=== PATIENT | female | born 2000 | race Caucasian/White ===

== ENCOUNTER 2021-09-16 19:58 | Inpatient (IN) | payer OTHER ==
[~2021-09-16] VITALS: Ht 160 cm; Wt 47.0 kg
[~2021-09-16 19:58] MED LIST: NO HOME MEDS
--- NOTE | 2021-09-16 20:30 | NUR ---
Pt brought back from main ER, she had eloped from [facility] at approximatley 2:00 pm today. The plan is to do labs and pt to be readmitted to [facility].
[2021-09-16 20:39] LABS: URINE HCG NEGATIVE (NEG)
[2021-09-16 20:41] LABS: BASOPHILS # (AUTO) 0.1 X10'3 (0-0.2); BASOPHILS % (AUTO) 0.7 % (0-1); EOSINOPHILS # (AUTO) 0.1 X10'3 (0-0.9); EOSINOPHILS % (AUTO) 0.5 % (0-6); HEMATOCRIT 39.3 % (35.0-45.0); HEMOGLOBIN 13.3 g/dl (12.0-16.0); MEAN CORPUSCULAR HEMOGLOBIN 30.2 PG (27.0-31.0); MEAN CORPUSCULAR HGB CONC 33.8 g/dL (33.0-36.5); MEAN CORPUSCULAR VOLUME 89.3 FL (78-98); MONOCYTES # (AUTO) 1.1 X10'3 (0-0.9); MONOCYTES % (AUTO) 10.9 % (2-12); NEUTROPHILS # (AUTO) 6.4 X10'3 (1.8-7.7); NEUTROPHILS % (AUTO) 66.9 % (42-75); PLATELET COUNT 237 X10'3 (140-440); WHITE BLOOD COUNT 9.6 X10'3 (4.5-11.0)
[2021-09-16 20:52] LABS: URINE AMPHETAMINE SCREEN NEGATIVE (Neg); URINE BARBITUATE SCREEN NEGATIVE (Neg); URINE BENZODIAZEPINES SCREEN NEGATIVE (Neg); URINE CANNABINOID SCREEN POSITIVE (Neg); URINE COCAINE SCREEN NEGATIVE (Neg); URINE METHADONE SCREEN NEGATIVE (Neg); URINE OPIATE SCREEN NEGATIVE (Neg); URINE PHENCYCLIDINE SCREEN NEGATIVE (Neg)
[2021-09-16 20:53] LABS: ALANINE AMINOTRANSFERASE 15 U/L (12-78); ALBUMIN 4.5 G/DL (3.4-5.0); ALBUMIN/GLOBULIN RATIO 1.7 (1.1-1.5); ALKALINE PHOSPHATASE 53 IU/L (46-116); ANION GAP 8 (8-16); ASPARTATE AMINO TRANSFERASE 22 U/L (10-37); BILIRUBIN,TOTAL 0.5 MG/DL (0.1-1.0); BLOOD UREA NITROGEN 19 MG/DL (7-18); BUN/CREATININE RATIO 19.4 (6.6-38.0); CALCIUM 8.8 MG/DL (8.5-10.1); CHLORIDE 106 MMOL/L (99-107); CREATININE 0.98 MG/DL (0.40-0.90); GLUCOSE 91 MG/DL (70-104); POTASSIUM 3.6 MMOL/L (3.5-5.1); SODIUM 141 MMOL/L (135-145); TOTAL CARBON DIOXIDE 27.1 MMOL/L (24-32); TOTAL PROTEIN 7.2 G/DL (6.4-8.2); eGFR 72 ML/MIN
[2021-09-16 20:54] LABS: ETHANOL < 0.010 GM/DL (0.0-0.010)
[2021-09-16] MEDS ORDERED: magnesium hydroxide 30ml (MOM) UD suspension PO PRN (21:35)
[2021-09-16] MEDS ORDERED: mag hydrox/Alum hydrox/simeth 30ml oral suspension PO PRN (21:35)
[2021-09-16] MEDS ORDERED: loperamide 2mg capsule PO PRN (21:35)
[2021-09-16] MEDS ORDERED: NICOTINE POLACRILEX 2 MG LOZENGE BC PRN (21:35)
[2021-09-16] MEDS ORDERED: acetaminophen 325mg tablet PO PRN ×2 (21:35)
[2021-09-16] MEDS: docusate sod 100mg capsule PO SCH (21:58)
[2021-09-16] MEDS: olanzapine 10mg tablet PO SCH (21:58)
--- NOTE | 2021-09-16 22:12 | NUR ---
NO PATIO PRIVILEGES
[2021-09-16 23:29] VITALS: BP 121/75
[2021-09-16] MEDS ORDERED: OLANZapine 2.5MG tablet PO PRN (23:45)
--- NOTE | 2021-09-16 23:45 | NUR ---
RE-ADMIT NOTE: LEGAL HOLD: 5250 for GD REASON FOR ADMIT: Client is disorganized and unable to formulate a plan for food, clothing, and usp. Client reported that she was "thinking about hurting" herself. THIS SHIFT: Client eloped during a unit patio break at approximately 14:00. Client returned to the hospital at 19:30. Both parents were present. Client was calm and quiet. Client was admitted to ED and assessed by MD. Labs and a Covid test were obtained. Client was re-admitted to [facility] at 21:45. She arrived in a wheelchair accompanied by Ron Dow. Client was cooperative during admission, showered, had a snack, and received PM meds. Client stated, "I walked to the railroad tracks and followed them to the bridge." Client denied meeting or speaking to anyone. Client denied having any type of plan. Client did not eat or drink while away from the hospital. Client stated she was walking back to the hospital and encountered a [facility] RN (who drove her back). Client was in no distress. Affect is blunted and mood is stable. Client is unaware of the potential risks of walking along train tracks or unfamiliar area's. DISCHARGE: Home.
--- NOTE | 2021-09-17 01:00 | NUR ---
LOS FOR SUICIDE RISK: Client reported to Merissa Wadsworth RN that she was planning to commit suicide during the time she eloped from [facility]. Client reported to this RN that she walked along the railroad tracks during the time she was gone. Client was aware of the location of the railroad tracks and went directly there after leaving the hospital. Client is now a LOS and suicide precautions will be implemented.
[2021-09-17 07:55] VITALS: BP 98/64
[2021-09-17] MEDS ORDERED: nicotine 21mg patch - 24 hr TD SCH (08:00)
[2021-09-17] MEDS: buPROPion 75mg tablet PO SCH ×2 (08:37→13:07)
[2021-09-17] MEDS: docusate sod 100mg capsule PO SCH ×2 (08:37→20:01)
--- NOTE | 2021-09-17 14:09 | NUR ---
Nursing Progress Note: Legal hold: 5250 Client on involuntary status for GD Report received from nurse with use of SBAR: Rossana Cazares RN Why are they here: Client is disorganized and unable to formulate a plan for food, clothing, and half-way. Client reported that she was "thinking about hurting" herself. Assessment What has happened this shift: Received pt. sleeping in bed at the beginning of the shift, she remains on line of sight r/t elopement and suicide precautions. Pt. was awoken by staff and required direction to attend breakfast in the Group Room, and afterwards she returned back to her room where she continued to isolate. 1:1 was completed at bedside, pt. presents as cooperative, fatigued, isolative, and guarded. She responds to direct questions only with a slowed and very soft response which is difficult to hear at times. Pt. admits to ongoing S/I, and when questioned by this board writer regarding any plan she did not respond. Pt. is able to contract for safety while on the unit. She denies any H/I, A/V/LIMA, and no delusional statements were made. Pt. then requested paper and a writing utensil in order to board writer her feelings down, reporting that it is easier for her to write than to talk about them. She appears depressed with a flat affect. Pt. isolates in her room throughout the day, napping intermittently, writing, or staring out the window. S/I, H/I: Pt. reports ongoing S/I, however when questioned regarding any plan she does not respond A/VH: Denies, does not appear to be internally preoccupied Sleep: Sleep hours are 6, and pt. naps intermittently during the shift ADL's: Pt. is on LOS for elopement and suicide precautions Group attendance: N/A Were meds taken: Yes Any med S/E: None Mental Status Exam Appearance: Hair and clothing somewhat disheveled r/t laying in bed Eye contact: Poor, does not look at this board writer directly when talking Behavior: Cooperative, fatigued, isolative, and guarded Speech: Very soft and slowed Mood: Guarded Affect: Flat Thought process: Poverty of thought and possible thought blocking Thought Content: Depression with S/I Cognition: A&O X4 Insight: Poor Judgment: Poor Interventions PRN's used: None Therapeutic interventions: Maintained a safe and supportive environment, ensured contract for safety, provided clear and simple instruction, provided active listening and positive encouragement, encouraged participation on the unit, and maintained LOS precautions. Restraints/seclusion/emergency medication: N/A Justification of Continued Inpatient Treatment: Per JOSE Espinal, pt. continues to require a safe and supportive environment and medication adjustments.
[2021-09-17] MEDS: LORazepam 0.5 MG tablet PO PRN (18:31)
[2021-09-17 19:31] VITALS: BP 110/71
[2021-09-17] MEDS: olanzapine 10mg tablet PO SCH (20:00)
--- NOTE | 2021-09-18 00:24 | NUR ---
NURSING PROGRESS NOTE Legal hold: 5250 Why are they here: Client is disorganized and unable to formulate a plan for food, clothing, and senior care. Client reported that she was "thinking about hurting" herself. Pt has hx of going AWOL. What Happened This Shift: Pt continues to be on a line of sight for elopement risk. She mostly isolates in her room, reading a book. She approaches RN and asks for something for anxiety pt is given PRN Ativan. She states she is feeling a lot of anxiety, but does not go into any detail. RN asks how her visit with her family went today, she responds, okay. She has a sullen look on her face and continues to have a depressed affect. RN asks how she has been sleeping and she says, I fall asleep pretty well at night. She then comes out into the hallway and sits with her sitter and a small group of peers, plays the guitar, and jenga for over an hour. Pt confided in her sitter that she had a good high school experience and didnt start having these problems until March when she did acid for the first time. She denies AH/VH/SI/HI at this time, but does not seem to want to talk about this subject. Discharge: Patient in need of crisis interruption and stabilization with medication management and monitoring in a safe and therapeutic environment until stable.
[2021-09-18] MEDS: buPROPion 75mg tablet PO SCH ×2 (07:30→12:40)
[2021-09-18 08:00] VITALS: BP 107/71
[2021-09-18] MEDS: docusate sod 100mg capsule PO SCH ×2 (08:40→20:10)
[2021-09-18 09:17] VITALS: BP 107/71
--- NOTE | 2021-09-18 09:41 | NUR ---
Pt attended group today. We talked about Self Nurturing about how to curate spaces of nurture/self-care for themselves. We then did Vision board visualizing safe/nurture places and words. Pt. quietly engaged in the group today. Her demeanor was calm, compliant and pleasant. She listened intently and appeared to enjoy the creativity of doing the Vision Page. She declined to share the page with the group but asked if she could do another one. She did share with the Track Surfacing Machine Operator that she does enjoy creative projects and has always wanted to do more with her creativity. Her mood seems depressive with a restricted affect. She doesn't reach out to peers but remains in her own space quietly. It is difficult to ascertain her thought content or thought process as she speaks minimally. Migdalia Robertson, BAGGAGE INSPECTOR
[2021-09-18] MEDS: nicotine 21mg patch - 24 hr TD SCH (16:21)
--- NOTE | 2021-09-18 16:56 | NUR ---
Nursing Progress Note: FUAD Legal hold: 5250 Client on involuntary status for GD Report received from RN with use of SBAR Why are they here: Client is disorganized and unable to formulate a plan for food, clothing, and correction. Client reported that she was "thinking about hurting" herself. Assessment What has happened this shift: Patient was sleeping at the beginning of shift, but was awake and up in bed writing in a notebook during med pass. She denies any SI/HI and V/A hallucinations. She says she plans on returning to her mothers house in [place] where she will then work for her mother and save up some money to move out on her own. She did spend some time in the community room. Spent most of her time in her room doing yoga and meditating. S/I, H/I: Denies A/VH: Denies, does not appear to be internally preoccupied Sleep: napping throughout shift ADL's: Pt. is on LOS for elopement and suicide precautions Group attendance: 1st group Were meds taken: Yes Any med S/E: None Mental Status Exam Appearance: hair and clothes intact Eye contact: good Behavior: Cooperative Speech: Very soft and slowed Mood: Guarded Affect: Flat Thought process: clear and organized Thought Content: meeting own needs Cognition: A&O X4 Insight: fair Judgment: fair Interventions PRN's used: None Therapeutic interventions: Maintained a safe and supportive environment, ensured contract for safety, provided clear and simple instruction, provided active listening and positive encouragement, encouraged participation on the unit, and maintained LOS precautions. Restraints/seclusion/emergency medication: N/A Justification of Continued Inpatient Treatment: JOSE Montero, pt. continues to require a safe and supportive environment and medication adjustments.
--- NOTE | 2021-09-18 18:52 | NUR ---
Met with patient briefly to assess her mental status. Her affect is downcast, I inquired as to whether she was still having thoughts of suicide, she denied currently, I asked when the last time she had thoughts of suicide and she stated "earlier today." She stated she feels like her emotions come in waves. She remains on LOS status.
[2021-09-18 20:00] VITALS: BP 119/75
[2021-09-18] MEDS: olanzapine 10mg tablet PO SCH (20:10)
[2021-09-18] MEDS: traZODone 50mg tablet PO PRN (22:54)
--- NOTE | 2021-09-18 23:48 | NUR ---
Nursing Progress Note: FUAD Legal hold: 5150 Client on involuntary status for GD Report received from RN with use of SBAR Why are they here: Client is disorganized and unable to formulate a plan for food, clothing, and assisted. Client reported that she was "thinking about hurting" herself. Assessment What has happened this shift: Patient was sitting up in bed reading at change of shift. She currently denies any SI/HI and V/A hallucinations, however the CN assessed her mental status and pt states the last time she thought of suicide was earlier today. She presents as depressed and slightly anxious. She participated in snacks in the community room and took all HS medications. She is observed sitting in her room reading with headphones on prior to bedtime. Pt up around 2230 requesting sleep medication, 50MG of trazadone given. Pt remains on LOS status S/I, H/I: Denies A/VH: Denies, does not appear to be internally preoccupied Sleep: ADL's: Pt. is on LOS for elopement and suicide precautions Group attendance: Were meds taken: Yes Any med S/E: None Mental Status Exam Appearance: Wearing green scrub bottoms with a personal jacket Eye contact: fair Behavior: Cooperative Speech: Very soft and slowed Mood: Guarded Affect: Flat Thought process: clear and organized Thought Content: meeting own needs Cognition: A&O X4 Insight: fair Judgment: fair Interventions PRN's used: trazadone Therapeutic interventions: Maintained a safe and supportive environment, ensured contract for safety, provided clear and simple instruction, provided active listening and positive encouragement, encouraged participation on the unit, and maintained LOS precautions. Restraints/seclusion/emergency medication: N/A Justification of Continued Inpatient Treatment: JOSE Montero, pt. continues to require a safe and supportive environment and medication adjustments.
[2021-09-19] MEDS: buPROPion 75mg tablet PO SCH ×2 (07:48→12:48)
[2021-09-19] MEDS: docusate sod 100mg capsule PO SCH ×2 (07:48→20:12)
[2021-09-19] MEDS: nicotine 21mg patch - 24 hr TD SCH (07:49)
[2021-09-19 08:00] VITALS: BP 95/67
--- NOTE | 2021-09-19 13:53 | NUR ---
Pt. attended group today. At the beginning of group we talked about Core Beliefs and they each identified one negative. We worked toward finding evidence to contradict this belief. In the second half of the group we did an Art Expressions where they what was inside of their hearts. They were to visualize in colors and shapes and then color their heart in. Then they completed a Sentence Completion about what their heart thinks and feels. Pt. quietly sat in group listening to this Cattle Manager and her peers. Her thought content and thought process were WNL. She engaged well in the group but did not wish to share her thoughts with the group. She did share her heart drawing and attempted to explain it a bit. Her heart was very colorful. She described her heart as divided. She had an arrow on one side and a flower on the other, she couldn't really explain what these represented. Migdalia Robertson, MANAGER PAPER
--- NOTE | 2021-09-19 15:59 | NUR ---
Nursing Progress Note: Ingrid Legal hold: 5150 Client on involuntary status for GD Report received from RYDER Craven with use of SBAR Why are they here: Client is disorganized and unable to formulate a plan for food, clothing, and senior living. Client reported that she was "thinking about hurting" herself. Assessment What has happened this shift: Patient received sleeping in bed at change of shift. She remains on LOS observation r/t previous elopement and suicide precautions. She awoke and was observed doing yoga in her room on a yoga mat before breakfast. Patient endorsed to this teletypewriter installer that she is feeling so-so this morning. She joined in the group room, noted sitting quietly eating breakfast. She was receptive to scheduled medication and 1:1 assessment. Patient continues to present as quiet, isolative, and guarded yet cooperative with care. She returned to her room shortly after where she continued to isolate, noted quietly reading a book. Patient denies SI/HI, AH or VH. Does not appear to be responding to internal stimuli. Patient was observed visiting with her parents during visiting hours today, noted smiling and laughing appropriately. She continues to only respond to direct questions and does not wish to emphasize on how she is feeling. Patient endorsed that she has depression here and there but was unwilling to emphasize any further. She denies any thoughts of self-harm. Patient was observed joining in group therapy today, noted interacting appropriately with peers and staff. She was noted putting together pieces of a puzzle later in the day. Patient continues to self-isolate throughout the shift, noted joining in the group room only during snack and meal times. S/I, H/I: Denies A/VH: Denies, does not appear to be internally preoccupied Sleep: Pt slept 4.5 hours last night per NOC shift. Napped intermittently during this shift. ADL's: Independent Group attendance: Yes Were meds taken: Yes, without hesitance. Any med S/E: None observed or reported Mental Status Exam Appearance: Short, petite female. Short curly brown hair, wearing eyeglasses. Wearing personal brown sweater and green unit scrub pants. Eye contact: Poor, infrequently makes direct eye contact Behavior: Cooperative, fatigued, isolative, and guarded Speech: Very soft and slow responses Mood: Guarded, appears depressed Affect: Flat Thought process: Poverty of thought and possible thought blocking Thought Content: Depressive thoughts. Meeting basic needs. Cognition: A&O X4 Insight: Poor Judgment: Poor Interventions PRN's used: None Therapeutic interventions: Maintained a safe and supportive environment, ensured contract for safety, provided clear and simple instruction, provided active listening and positive encouragement, encouraged participation on the unit, and maintained LOS precautions. Restraints/seclusion/emergency medication: N/A Justification of Continued Inpatient Treatment: Patient continues to require a safe and supportive environment and medication adjustments. Per Dr. Richmond, patient is gravely disabled as a result of her depressive symptoms. We will continue to optimize treatment.
[2021-09-19 19:42] VITALS: BP 113/81
[2021-09-19] MEDS: traZODone 50mg tablet PO PRN (20:12)
[2021-09-19] MEDS: olanzapine 10mg tablet PO SCH (20:12)
--- NOTE | 2021-09-20 01:25 | NUR ---
Nursing Progress Note: Ingrid Legal hold: 5150 Client on involuntary status for GD Report received from Ceci SOLER with use of SBAR Why are they here: Client is disorganized and unable to formulate a plan for food, clothing, and retirement. Client reported that she was "thinking about hurting" herself. Assessment What has happened this shift: Patient received in her room doing yoga. Pt seemed a little brighter this evening smiling with good eye contact stating that she is doing well. She states she feels the medications are working and denies MH symptoms at this time. She remains on LOS observation r/t previous elopement and suicide precautions. Pt up for snacks in the community room and took all HS medications. Pt isolated back to room after med pass. S/I, H/I: Denies A/VH: Denies, does not appear to be internally preoccupied Sleep: ADL's: Independent Group attendance: Yes Were meds taken: Yes, without hesitance. Any med S/E: None observed or reported Mental Status Exam Appearance: Short, petite female. Short curly brown hair, wearing eyeglasses. Wearing personal brown sweater and green unit scrub pants. Eye contact: Fair Behavior: Cooperative, fatigued, isolative, and guarded Speech: Very soft and slow responses Mood: Guarded, appears depressed Affect: Flat Thought process: Poverty of thought and possible thought blocking Thought Content: Meeting basic needs. Cognition: A&O X4 Insight: Poor Judgment: Poor Interventions PRN's used: trazadone Therapeutic interventions: Maintained a safe and supportive environment, ensured contract for safety, provided clear and simple instruction, provided active listening and positive encouragement, encouraged participation on the unit, and maintained LOS precautions. Restraints/seclusion/emergency medication: N/A Justification of Continued Inpatient Treatment: Patient continues to require a safe and supportive environment and medication adjustments. Per Dr. Richmond, patient is gravely disabled as a result of her depressive symptoms. We will continue to optimize treatment.
--- NOTE | 2021-09-20 07:21 | NUR ---
Initial: Pt admitted w/ suicidal ideations per EMR. Currently on Regular diet w/ mostly 100% intake of meals and consumes snacks per documentation, meeting est nutrient needs at this time. Pt w/ low BMI though appears WD/WN per ED note. LBM 09/18 receiving routine colace. No nutrition intervention implemented at this time, will continue to monitor Recs: 1. Continue Regular diet as tolerated 2. Bowel care per rx 3. Weekly wts Addendum: 09/20/21 at [address] Amended: Links added.
[2021-09-20] MEDS: docusate sod 100mg capsule PO SCH ×2 (07:44→20:07)
[2021-09-20] MEDS: buPROPion 75mg tablet PO SCH ×2 (07:44→12:11)
[2021-09-20] MEDS: nicotine 21mg patch - 24 hr TD SCH (07:44)
[2021-09-20 08:00] VITALS: BP 108/68
[2021-09-20] MEDS: ESCITALOPRAM OXALATE 5 MG TABLET PO SCH (08:05)
[2021-09-20] MEDS: LORazepam 0.5 MG tablet PO PRN (13:52)
--- NOTE | 2021-09-20 16:48 | NUR ---
Nursing Progress Note: Ingrid Legal hold: 5150 Client on involuntary status for GD Report received from RYDER Craven with use of SBAR Why are they here: Client is disorganized and unable to formulate a plan for food, clothing, and usp. Client reported that she was "thinking about hurting" herself. Assessment What has happened this shift: Patient received sleeping in her room at shift change. Patient endorsed that she slept pretty good and proceeded to ask this technical report writer how to get a new certificate. She continues on LOS observation r/t previous elopement and suicide precautions. Patient endorsed that she thinks she is here because she had another episode. Patient noted endorsing that she was feeling suicidal. Patient endorsed that she is feeling a little worse now than when she got here due to missing her friends and family. Patient stated that she is trying to do more self-care and felt better in the past when she was around her friends and family. She participated for breakfast in the group room with peers. Patient continues to present as isolative, guarded, and cooperative with care. She took her scheduled medication without hesitancy. Patient denies SI/HI, AH or VH. Does not appear to be responding to internal stimuli. Patient was noted asking this technical report writer if she could be switched to a different facility. Patient encouraged to talk to Dr. Richmond about desire to switch facilities. When asked why patient wants to switch to another facility, she quietly endorsed that she doesnt know. Patient continues to only respond to direct questions and does not wish to emphasize on how she is feeling. Patient approached this technical report writer endorsing feelings of anxiety and was given PRN Ativan at 1352 with effectiveness. She was observed sitting in her room shortly after reading a book. She continues to self-isolate throughout the shift, noted joining in the group room only during snack and meal times. S/I, H/I: Denies A/VH: Denies, does not appear to be internally preoccupied Sleep: Pt slept 7.25 hours last night per NOC shift. Napped intermittently during this shift. ADL's: Independent Group attendance: N/A Were meds taken: Yes, without hesitance. Any med S/E: None observed or reported Mental Status Exam Appearance: Short, petite female. Short curly brown hair, wearing eyeglasses. Wearing personal brown sweater and green unit scrub pants. Eye contact: Poor, infrequently makes direct eye contact Behavior: Cooperative, fatigued, isolative, and guarded Speech: Very soft and slow responses Mood: Guarded, appears depressed Affect: Flat Thought process: Poverty of thought and possible thought blocking Thought Content: Meeting basic needs. Trying to do more self-care. Cognition: A&O X4 Insight: Poor Judgment: Poor Interventions PRN's used: Ativan Therapeutic interventions: Maintained a safe and supportive environment, ensured contract for safety, provided clear and simple instruction, provided active listening and positive encouragement, encouraged participation on the unit, and maintained LOS precautions. Restraints/seclusion/emergency medication: N/A Justification of Continued Inpatient Treatment: Patient continues to require a safe and supportive environment and medication adjustments. Per Dr. Richmond, patient is gravely disabled as a result of her depressive symptoms. We will continue to optimize treatment.
[2021-09-20 19:00] VITALS: BP 115/70
[2021-09-20] MEDS: olanzapine 10mg tablet PO SCH (20:07)
[2021-09-20] MEDS: traZODone 50mg tablet PO PRN (20:07)
--- NOTE | 2021-09-21 01:11 | NUR ---
Nursing Progress Note: Ingrid Legal hold: 5150 Client on involuntary status for GD Report received from RYDER Ho with use of SBAR Why are they here: Client is disorganized and unable to formulate a plan for food, clothing, and usp. Client reported that she was "thinking about hurting" herself. Assessment What has happened this shift: Patient received lying in bed reading a book. Pt denies MH symptoms but states she had some anxiety earlier in the day and received Ativan for it with good results. Denies constipation and diarrhea. Pt participated in snacks and took all HS medications. She describes her mood as mellow. Therapeutic interventions: Maintained a safe and supportive environment, ensured contract for safety, provided clear and simple instruction, provided active listening and positive encouragement, encouraged participation on the unit, and maintained LOS precautions. Restraints/seclusion/emergency medication: N/A Justification of Continued Inpatient Treatment: Patient continues to require a safe and supportive environment and medication adjustments. Per Dr. Richmond, patient is gravely disabled as a result of her depressive symptoms. We will continue to optimize treatment.
[2021-09-21] MEDS: buPROPion 75mg tablet PO SCH ×2 (07:40→12:28)
[2021-09-21] MEDS: ESCITALOPRAM OXALATE 5 MG TABLET PO SCH (07:40)
[2021-09-21] MEDS: nicotine 21mg patch - 24 hr TD SCH (07:40)
[2021-09-21 07:41] VITALS: BP 98/64
[2021-09-21] MEDS: docusate sod 100mg capsule PO SCH ×2 (07:41→20:13)
--- NOTE | 2021-09-21 14:40 | NUR ---
Nursing Progress Note: Ingrid Legal hold: 5150 Client on involuntary status for GD Report received from CARLITOS Craven with use of SBAR Why they are here: Client is disorganized and unable to formulate a plan for food, clothing, and [place] [facility]. Client reported that she was "thinking about hurting" herself. Assessment What has happened this shift: Patient is resting quietly in bed at the start of the shift. Awakened for breakfast. Cooperative with 1:1 assessment but is quiet and withdrawn. Visits with her mom during visiting. Compliant with her medication. Isolates to her room but will come out with encouragement. No exit seeking behavior is noted. S/I, H/I: Endorses passive thoughts of suicide but denies having a plan and contracts for safety while here on the unit. A/VH: Denies Sleep: 2 hours in the morning. Naps off and on throughout the day. ADL's: Independent Group attendance: No Were meds taken: Yes Any med S/E: None observed or reported Mental Status Exam Appearance: Short, petite female. Short curly brown hair, wearing eyeglasses wearing casual personal attire. Eye contact: Poor Behavior: Cooperative, isolative, and guarded Speech: Clear, soft, minimal Mood: Okay. Appears depressed Affect: Blunted Thought process: Linear, depressed Thought Content: Unable to assess Cognition: A&O X4 Insight: Poor Judgment: Poor Interventions PRN's used: None Therapeutic interventions: Maintained a safe and supportive environment, ensured contract for safety, provided clear and simple instruction, provided active listening and positive encouragement, encouraged participation on the unit, and maintained LOS precautions. Restraints/seclusion/emergency medication: N/A Justification of Continued Inpatient Treatment: Patient continues to require a safe and supportive environment and medication adjustments. Per Dr. Richmond, patient is gravely disabled as a result of her depressive symptoms. We will continue to optimize treatment.
[2021-09-21 19:12] VITALS: BP 115/75
[2021-09-21] MEDS: olanzapine 10mg tablet PO SCH (20:13)
--- NOTE | 2021-09-22 00:57 | NUR ---
Legal hold: 5250 Client on involuntary status for GD Report received from RYDER Goff with use of SBAR Behavior: Isolative, guarded, depressed Assessment What has happened this shift: Patient was found sitting on bed alone reading a book. Patient states she doesn't like her new room. The view in her old room made her feel better. This one makes her feel more inclosed and depressed. Patient stayed in her room all shift and didn't participate in snack or socialize with other patients. Patient took all night medications without issue and went to bed.
[2021-09-22 08:00] VITALS: BP 101/80
[2021-09-22] MEDS: buPROPion 75mg tablet PO SCH ×2 (08:05→12:39)
[2021-09-22] MEDS: ESCITALOPRAM OXALATE 5 MG TABLET PO SCH (08:05)
[2021-09-22] MEDS: docusate sod 100mg capsule PO SCH ×2 (08:05→20:16)
[2021-09-22] MEDS: nicotine 21mg patch - 24 hr TD SCH (08:06)
--- NOTE | 2021-09-22 14:49 | NUR ---
Spoke to Ingrid's mother, Ara ([phone]), as she had questions regarding 5250. Informed her Dr Richmond thought Ingrid would be able to discharge early in next week. She reported she is going to visit on Saturday so if she were released Sat she requested she be able to take her after visiting time. Ara reported she is going to flume worker for the next 3-4 weeks so she can offer support and supervision once Ingrid returns home. TINO Grimm
--- NOTE | 2021-09-22 17:13 | NUR ---
Nursing Progress Note: Ingrid Legal hold: 5250 Client on involuntary status for GD Report received from Rossana Bowen RN with use of SBAR Why are they here: Client is disorganized and unable to formulate a plan for food, clothing, and detention. Client reported that she was "thinking about hurting" herself. Assessment What has happened this shift: Patient received sleeping in bed at change of shift. She was receptive to her scheduled medication and 1:1 assessment. Patient endorsed that she is feeling so-so this morning. Patient also endorsed that she is doing good and is starting to feel better. She continues to only respond to direct questions. Patient noted joining in the group room for breakfast this morning. She retreated back to her room shortly after breakfast, noted quietly reading a book. Patient denies all mental health symptoms, does not appear to be responding to internal stimuli. She continues to present as isolative, guarded, and cooperative with care. Patient was observed visiting with her mother during visiting hours today. She continues to self-isolate to her room throughout the shift, noted joining in the group room only during snack and meal times. S/I, H/I: Denies A/VH: Denies, does not appear to be internally preoccupied Sleep: Pt slept 8.5 hours last night per NOC shift. Napped intermittently during this shift. ADL's: Independent Group attendance: N/A Were meds taken: Yes, without hesitance. Any med S/E: None observed or reported Mental Status Exam Appearance: Short, petite female. Short curly brown hair, wearing eyeglasses. Wearing personal brown sweater and green unit scrub pants. Eye contact: Poor, infrequently makes direct eye contact Behavior: Cooperative, fatigued, isolative, and guarded Speech: Very soft and slow responses Mood: Doing good, however, appears depressed Affect: Flat Thought process: Poverty of thought and possible thought blocking Thought Content: Meeting basic needs. Does not share thoughts. Cognition: A&O X4 Insight: Poor Judgment: Poor Interventions PRN's used: None Therapeutic interventions: Maintained a safe and supportive environment, ensured contract for safety, provided clear and simple instruction, provided active listening and positive encouragement, encouraged participation on the unit, and maintained LOS precautions. Restraints/seclusion/emergency medication: N/A Justification of Continued Inpatient Treatment: Patient continues to require a safe and supportive environment and medication adjustments/monitoring. Per Dr. Richmond, patients presentation is still very consistent with major depressive episode. We will continue to optimize treatment.
[2021-09-22 19:00] VITALS: BP 127/79
[2021-09-22] MEDS: olanzapine 10mg tablet PO SCH (20:16)
[2021-09-22] MEDS: traZODone 50mg tablet PO PRN (20:44)
--- NOTE | 2021-09-23 04:48 | NUR ---
Nursing Progress Note Legal hold: 5250 Client on involuntary status for GD Report received from RYDER Goff with use of SBAR Behavior: social Assessment What has happened this shift: Patient was found sitting on bed reading at beginning of shift. Patient stated she is glad to be back in her old room but her roommate is a lot. Patient was observed outside of her room in the community room participating in snack and playing games with other patients. Patient played multiple games before walking back to room. Patient took all night medications including requested prn trazodone to help her sleep. Patient slept without issue
[2021-09-23] MEDS: buPROPion 75mg tablet PO SCH ×2 (07:59→11:46)
[2021-09-23] MEDS: docusate sod 100mg capsule PO SCH ×2 (07:59→20:35)
[2021-09-23] MEDS: ESCITALOPRAM OXALATE 5 MG TABLET PO SCH (07:59)
[2021-09-23 08:00] VITALS: BP 112/73
[2021-09-23] MEDS: nicotine 21mg patch - 24 hr TD SCH (08:00)
[2021-09-23] MEDS: LORazepam 0.5 MG tablet PO PRN (15:19)
--- NOTE | 2021-09-23 15:26 | NUR ---
Nursing Progress Note: Ingrid Legal hold: 5250 Client on involuntary status for GD Report received from Rossana Bowen RN with use of SBAR Why are they here: Client is disorganized and unable to formulate a plan for food, clothing, and fpc. Client reported that she was "thinking about hurting" herself. Assessment What has happened this shift: Patient received sleeping in bed, and awoke to receive her medications. 1:1 assessment completed at the bedside, she denies SI, HI, and reports her discharge plans are to go back to my moms Pt. began to sob and continues to present as guarded. Pt. just shakes her hed side to side when asked if she wants to talk about anything. Pt. ate her meals in the dining room with cohorts but is withdrawn from others. Pt. spent her spare time in her room reading and did not participate in snack times. Pt. requested to take a shower, and did so. Later in the afternoon pt was observed pacing and tearful. Network Security Officer found attempted to discuss pt.s feelings but she presents as anxious and guarded while hiding paperwork on a notepad. PRN Ativan given. S/I, H/I: Denies A/VH: Denies Sleep: Pt slept 7 hours last night per NOC shift. Napped intermittently during this shift. ADL's: Independent Group attendance: N/A Were meds taken: Yes Any med S/E: None observed or reported Mental Status Exam Appearance: Young female, wearing eyeglasses, and wearing brown sweater and green unit scrubs Eye contact: Fair Behavior: Isolative, guarded Speech: Low whisper and delayed responses Mood: Depressed Affect: Flat Thought process: Poverty of thought Thought Content: Meeting basic needs. Cognition: A&O X4 Insight: Poor Judgment: Poor Interventions PRN's used: Ativan Therapeutic interventions: Maintained a safe and supportive environment, ensured contract for safety, provided clear and simple instruction, provided active listening and positive encouragement, encouraged participation on the unit, and maintained LOS precautions. Restraints/seclusion/emergency medication: N/A Justification of Continued Inpatient Treatment: Patient continues to require a safe and supportive environment and medication adjustments/monitoring. Per Dr. Richmond, patients presentation is still very consistent with major depressive episode. We will continue to optimize treatment.
[2021-09-23 19:00] VITALS: BP 113/79
[2021-09-23] MEDS: olanzapine 10mg tablet PO SCH (20:34)
[2021-09-23] MEDS: traZODone 50mg tablet PO PRN (20:35)
--- NOTE | 2021-09-24 01:17 | NUR ---
Nursing Progress Note: Ingrid Legal hold: 5250 Client on involuntary status for GD Report received from RYDER Goff with use of SBAR Behavior: isolative Assessment What has happened this shift: Patient was found sitting on bed reading at beginning of shift. Patient spoke very low when nurse preformed 1:1. Nurse tried to encourage pt to come out of room during snack time but patient refused. Patient was later observed laying on the ground listening to headphones. Patient requested trazodone tonight to help her sleep. Patient took all night medications without difficulty and went to bed.
[2021-09-24 08:00] VITALS: BP 102/63
[2021-09-24] MEDS: docusate sod 100mg capsule PO SCH ×2 (08:16→20:28)
[2021-09-24] MEDS: nicotine 21mg patch - 24 hr TD SCH (08:16)
[2021-09-24] MEDS: buPROPion 75mg tablet PO SCH ×2 (08:16→12:33)
[2021-09-24] MEDS: ESCITALOPRAM OXALATE 5 MG TABLET PO SCH (08:16)
--- NOTE | 2021-09-24 17:51 | NUR ---
Nursing Progress Note: Legal hold: 5250 Client on involuntary status for GD Report received from RYDER Conway with use of SBAR Why are they here: Client is disorganized and unable to formulate a plan for food, clothing, and [facility]. Client reported that she was "thinking about hurting" herself. Assessment What has happened this shift: Received patient who was sitting up in her bed and reading a book early this morning. Patient reports she sleeps fine and can return right back to sleep after a few minutes if awakened. Patient self isolates in room all day. Patient goes to the Community Room for meals, and participates in snacks in the Community Room. Patient speaks only a few words, mostly yes or no, at one sitting. Patient makes eye contact, but does not sustain it for any period of time. Patient appears guarded when we enter her room, and took a morning and afternoon nap today. Patient cooperates and is guarded. Patient usually responds doing good, when asked, but her facial appearance shows no smile or emotion at the time. Patient has not been observed speaking to others during her meals or snacks. Patient returns immediately after meals and snacks to her room to again self-isolate. Will continue to monitor patient and elopement and all times. S/I, H/I: Denies A/VH: Denies, does not appear to be internally preoccupied Sleep: Pt slept 8.5 hours last night per NOC shift. Napped during the morning and afternoon shift. ADL's: Independent Group attendance: No Group Meeting Held Today. Were meds taken: Yes, without hesitation. Any med S/E: None observed or reported Mental Status Exam Appearance: Short, petite female. Short curly brown hair, wearing eyeglasses. Wearing personal brown sweater and green unit scrub pants. Eye contact: Poor; short duration direct eye contact Behavior: Cooperative, fatigued, isolative, and guarded Speech: Very soft and slow responses Mood: Doing good, however, appears depressed Affect: Flat Thought process: Poverty of thought. Thought Content: Meeting basic needs. Cognition: A&O X4 Insight: Poor Judgment: Poor Interventions PRN's used: None Therapeutic interventions: Maintained a safe and supportive environment, ensured contract for safety, provided clear and simple instruction, provided active listening and positive encouragement, encouraged participation on the unit, and maintained LOS precautions. Restraints/seclusion/emergency medication: N/A Justification of Continued Inpatient Treatment: Patient continues to require a safe and supportive environment and medication adjustments/monitoring. Per Dr. Richmond, patients presentation is still very consistent with major depressive episode. We will continue to optimize treatment.
[2021-09-24] MEDS: traZODone 50mg tablet PO PRN (20:28)
[2021-09-24] MEDS: olanzapine 10mg tablet PO SCH (20:28)
[2021-09-24 20:50] VITALS: BP 109/73
--- NOTE | 2021-09-25 01:37 | NUR ---
Nursing Progress Note: Ingrid Legal hold: 5250 Client on involuntary status for GD Report received from RYDER Goff with use of SBAR Why are they here: Client is disorganized and unable to formulate a plan for food, clothing, and senior care. Client reported that she was "thinking about hurting" herself. Assessment What has happened this shift: Received patient stretching doing yoga while listening to headphones. Pt states she had an OK day and has a little of anxiety and depression, she states she feels better each day. Pt had good eye contact but appears somewhat guarded and isolative. Pt up in the community room for snacks and took all HS medications without issue. PRN's used: None Therapeutic interventions: Maintained a safe and supportive environment, ensured contract for safety, provided clear and simple instruction, provided active listening and positive encouragement, encouraged participation on the unit, and maintained LOS precautions. Restraints/seclusion/emergency medication: N/A Justification of Continued Inpatient Treatment: Patient continues to require a safe and supportive environment and medication adjustments/monitoring. Per Dr. Richmond, patients presentation is still very consistent with major depressive episode. We will continue to optimize treatment.
[2021-09-25 08:00] VITALS: BP 102/64
[2021-09-25] MEDS: buPROPion 75mg tablet PO SCH ×2 (08:37→13:22)
[2021-09-25] MEDS: docusate sod 100mg capsule PO SCH ×2 (08:37→20:14)
[2021-09-25] MEDS: ESCITALOPRAM OXALATE 5 MG TABLET PO SCH (08:37)
[2021-09-25] MEDS: nicotine 21mg patch - 24 hr TD SCH (08:38)
--- NOTE | 2021-09-25 08:41 | NUR ---
Informed by MELODY Arshad that MELODY Ramirez had entered the patient's room and observed the patient tying knots in her top sheet while sitting on her bed. This information was verified with MELODY Ramirez immediately. Patient stopped tying the knots when Ashley entered the room and put the sheet down on her bed. Went to the patiet's room as soon as I was notified, and observed a sheet folded approximately 3/4 to 1 inch in width, in an accordian style fold, and the sheet was laid out on her bed, from the bottom of her bed to the top of her the bed. The entire sheet was folded in accordian style fold, folding one side with the next. Interviewed the patient immediately and asked if she was feeling suicidal today. The patient stated "No," in a very small voice that was difficult to hear. Asked patient if she was hearing voices, or having visual or auditory hallucinations, and the patient again quietly replied "No." Patient answered the questions with a slight delay before responding. After leaving the room, I returned in approximately 5 minutes, and the top sheet was unfolded over the bed and a bedspread was arranged over the top of the top sheet.
--- NOTE | 2021-09-25 09:12 | NUR ---
Pt. attended group today. The group today was about Anxiety, they were asked to identify the natural and silent triggers they have experienced. The second half of group was about what coping skills we can utilize when we are anxious. This Distillery Worker led a Visualization/Breathing technique and also had then scale their anxiety levels for today. Pt. engaged minimally in the group, she would answers questions briefly when asked. She shared that her anxiety level today was at about a 5. She was alert and oriented X 4. Her thought content and thought process appeared WNL. She shared a few coping skills she engages in to help her feel better with the group. Her mood appears depressive with a restricted affect. Migdalia Robertson, SENIOR ART DIRECTOR
--- NOTE | 2021-09-25 13:38 | NUR ---
Met with Ingrid after the hearing today. Asked her what she was doing with her sheet this morning. She reported she was just folding it. Asked her if she knew why people were concerned. She acknowledged that people were concerned she was going to try to harm herself. She denied that she was going to harm herself. She denied any thoughts of harming herself. Discussed safety planning and who she can talk to if she does experience SI. She identified her therapist and her mother as people she can talk to. Called Ingrid's mom, Ara ([phone]), and informed her what staff had witnessed and what Ingrid told check writer salesperson. Discussed safety planning with Ara. Encouraged her to lock up meds, sharps, etc, and assist Ingrid with her medications. Ara denied that there are any guns or weapons in her home. Informed her that Ingrid has follow up with [facility] and [facility]. TINO Grimm
--- NOTE | 2021-09-25 14:08 | NUR ---
5250 upheld for DTS and GD
--- NOTE | 2021-09-25 17:41 | NUR ---
Nursing Progress Note: Legal hold: 5250 Client on involuntary status for GD Report received from RYDER Santillan with use of SBAR Why are they here: Client is disorganized and unable to formulate a plan for food, clothing, and correction. Client reported that she was "thinking about hurting" herself. Assessment What has happened this shift: Received patient while she was sleeping in her bed. Patient slept until approximately 1940, then was awakened for breakfast. Patient went to the Community Room for her breakfast. Patient took her 0800 medications as ordered by the doctor. Patient spent time with NIMO Riggins speaking with her in the office, then returned to her room to rest my back. See note written this morning about her tying knots in the top sheet and her folding her top sheet in 1 inch accordion (noted in previous note). Patient speaks very softly and slowly. Patient can be very difficult to understand, and guarded in each word that she says. S/I, H/I: Denies-On 09/25/21 (am) patient was observed making knots in her top sheet by a staff member. Patient had also folded her top sheet into approximately 1 inch accordion type of fold and laid it out lengthwise on her bed from the foot of the bed to the header of the bed. When asked patient if she was feeling suicidal at that time, patient denied by whispering No, very softly. Difficult to hear patient answer questions asked and had patient repeat answers to significant questions. Patient went to Group Meeting (see note), and then laid down this afternoon for a short nap. Patients mom came to visit her during visiting hours from [phone]. A/VH: Denies Sleep: Pt slept 6.25 hours last night per NOC shift. Napped during the afternoon. ADL's: Independent Group attendance: Attended the morning Group Meeting this morning. Were meds taken: Yes, without hesitation. Any med S/E: None observed or reported Mental Status Exam Appearance: Short, petite female. Short curly brown hair, wearing eyeglasses. Wearing personal brown sweater and green unit scrub pants. Eye contact: Poor; short duration of direct eye contact Behavior: Cooperative, fatigued, isolative, and guarded Speech: Very soft and slow responses Mood: Depressed Affect: Flat Thought process: Poverty of Thought Thought Content: Meeting basic needs. Cognition: A&O X4 Insight: Poor Judgment: Poor Interventions PRN's used: None Therapeutic interventions: Maintained a safe and supportive environment, ensured contract for safety, provided clear and simple instruction, provided active listening and positive encouragement, encouraged participation on the unit, and maintained LOS precautions. Restraints/seclusion/emergency medication: N/A Justification of Continued Inpatient Treatment: Patient continues to require a safe and supportive environment and medication adjustments/monitoring. Per Dr. Richmond, patients presentation is still very consistent with major depressive episode. We will continue to optimize treatment.
[2021-09-25 20:00] VITALS: BP 119/75
[2021-09-25] MEDS: traZODone 50mg tablet PO PRN (20:14)
[2021-09-25] MEDS: olanzapine 10mg tablet PO SCH (20:14)
--- NOTE | 2021-09-26 00:59 | NUR ---
Nursing Progress Note: Ingrid Legal hold: 5250 Client on involuntary status for GD Report received from RYDER Ornelas with use of SBAR Why are they here: Client is disorganized and unable to formulate a plan for food, clothing, and detention. Client reported that she was "thinking about hurting" herself. Assessment What has happened this shift: Received patient lying in bed tearful. When asked what was bothering her pt could not tell this RN. Pt denied SI/HI and stated some depression. When asked if she was wanting to go home with her mother she said yes in a whisper. Pt declined Ativan and was given hot tea. This comic book writer went back to her room about hour later to see if she felt any better (the patient was sitting up reading a book) and the pt stated yes, thank you. Pt declined snacks and took all HS medications, the pt was observed sleeping a short time later. S/I, H/I: Denies A/VH: Denies Sleep: ADL's: Independent Group attendance: Were meds taken: Yes, without hesitation. Any med S/E: None observed or reported Mental Status Exam Appearance: Short, petite female. Short curly brown hair, wearing eyeglasses. Wearing personal brown sweater and green unit scrub pants. Eye contact: Poor; short duration of direct eye contact Behavior: Cooperative, fatigued, isolative, and guarded Speech: Very soft and slow responses Mood: Depressed Affect: Flat Thought process: Poverty of Thought Thought Content: Meeting basic needs. Cognition: A&O X4 Insight: Poor Judgment: Poor Interventions PRN's used: None Therapeutic interventions: Maintained a safe and supportive environment, ensured contract for safety, provided clear and simple instruction, provided active listening and positive encouragement, encouraged participation on the unit, and maintained LOS precautions. Restraints/seclusion/emergency medication: N/A Justification of Continued Inpatient Treatment: Patient continues to require a safe and supportive environment and medication adjustments/monitoring. Per Dr. Richmond, patients presentation is still very consistent with major depressive episode. We will continue to optimize treatment.
--- NOTE | 2021-09-26 07:12 | NUR ---
Reassessment: Currently on Regular diet w/ avg intake 75% x 11 meals and consumes some snacks per documentation, meeting est nutrient needs at this time. [facility] 09/18 receiving routine colace. No nutrition intervention implemented at this time, will continue to monitor Recs: 1. Continue Regular diet as tolerated 2. Bowel care per rx 3. Weekly wts Addendum: 09/26/21 at [address] Amended: Links added.
[2021-09-26 07:55] VITALS: BP 94/53
[2021-09-26] MEDS: nicotine 21mg patch - 24 hr TD SCH (07:59)
[2021-09-26] MEDS: docusate sod 100mg capsule PO SCH (07:59)
[2021-09-26] MEDS: buPROPion 75mg tablet PO SCH (07:59)
[2021-09-26] MEDS: ESCITALOPRAM OXALATE 5 MG TABLET PO SCH (07:59)
[2021-09-26] MEDS ORDERED: TRAZ-251 PO (10:29)
[2021-09-26] MEDS ORDERED: BUPR-297 PO (10:29)
[2021-09-26] MEDS ORDERED: ESCI5TAB PO (10:29)
[2021-09-26] MEDS ORDERED: NICO-687 TD (10:29)
[2021-09-26] MEDS ORDERED: OLAN10TA73 PO (10:29)
--- NOTE | 2021-09-26 13:35 | NUR ---
DISCHARGE NOTE: Received discharge orders written by Dr. Richmond. Ashley reviewed all patient belongings with the patient and patient signed that she had received all of her belongings that she had come in with. Went to the Pharmacy to potato picker the patients stored medications. Reviewed stored medications with the patient and put in discharge bag that was in the Patients locker that was in the [facility] Room. Patients mother arrived at 1000 for [facility] visiting hours. Located patient and her mother in the Community Room and reviewed discharge packet with the patient and her mom, and informed the patient which medications she had already received at 0800 today. Patient was taken to the entrance/exit door of [facility] and was given her shoes to put on, then she received her belongings, discharge packet, as well as her pharmacy medications, and ambulated downstairs to the front of the hospital, and was discharged from [facility] at 1040 this morning.
== END 2021-09-26 10:42 | disposition home or self-care (01) | DRG 885 ==
LOC: ER 19:59 → ADULT MH 20:00 → ER 21:13 → ADULT MH 09-20 08:09
PROVIDERS: ADMIT Psychiatry & Neurology Psychiatry; ATTEND Psychiatry & Neurology Psychiatry
DX: F33.2 Major depressive disorder, recurrent severe without psychotic features (principal); R45.851 Suicidal ideations; F12.20 Cannabis dependence, uncomplicated; F41.1 Generalized anxiety disorder; K59.00 Constipation, unspecified; Z20.822 Contact with and (suspected) exposure to COVID-19; Z81.1 Family history of alcohol abuse and dependence; Z81.8 Family history of other mental and behavioral disorders; Z88.0 Allergy status to penicillin
CPT/HCPCS: 36415; 80053; 80305; 80320; 81025; 85025; 87635; 99285; C9803